=== PATIENT | male | born 1975 | race Caucasian/White ===

== ENCOUNTER 2019-02-24 07:41 | Emergency (ER) | payer BC, OTHER ==
[~2019-02-24] VITALS: Ht 170.2 cm; Wt 88.5 kg
[2019-02-24 07:58] VITALS: BP 160/108
== END 2019-02-24 08:49 | disposition home or self-care (01) ==
LOC: ER 07:45
DX: S46.912A Strain of unspecified muscle, fascia and tendon at shoulder and upper arm level, left arm, initial encounter (principal); S70.12XA Contusion of left thigh, initial encounter; V49.49XA Driver injured in collision with other motor vehicles in traffic accident, initial encounter; Y93.89 Activity, other specified; Y99.8 Other external cause status; Y92.410 Unspecified street and highway as the place of occurrence of the external cause
CPT/HCPCS: 73030